=== PATIENT | male | born 1960 | race Hispanic/Latino ===

== ENCOUNTER 2019-09-05 12:26 | Emergency (ER) | payer OTHER ==
[2019-09-05 13:23] LABS: #Basophils 0.1 thou/uL (0.0-0.2); #Eosinphils 0.6 thou/uL (0.0-0.7); #Lymphocytes 2.3 thou/uL (1.20-3.40); #Monocytes 0.5 thou/uL (0.11-0.59); #Neutrophils 2.8 thou/uL (1.40-6.50); %Basophils 1.7 % (0.0-1.0); %Lymphocytes 37.3 % (21.0-51.0); %Monocytes 7.1 % (0.0-10.0); %Neutrophils 44.9 % (42.0-75.0); Hemoglobin 15.9 g/dL (14.0-18.0); Mean Corpuscular HGB CONC 34.3 g/dL (32.0-36.0); Mean Corpuscular Hemoglobin 30.5 pg (27.0-31.0); Mean Corpuscular Volume 89.1 fL (78.0-98.0); Mean Platelet Volume 9.1 fL (7.4-10.4); Platelet Count 203 thou/uL (130-400); RBC Distribution Width 12.8 % (11.5-14.5); White Blood Cell (WBC) Count 6.3 thou/uL (4.8-10.8)
[2019-09-05 14:38] LABS: Albumin 3.4 g/dL (3.5-5.0)
[2019-09-05 14:39] LABS: Chloride 112 mmol/L (98-107); Sodium 138 mmol/L (136-145)
[2019-09-05 14:40] LABS: Calcium 8.8 mg/dL (7.8-10.44); Glucose 99 mg/dL (70-105)
[2019-09-05 14:41] LABS: Globulin 4.4 g/dL (2.4-3.5); Protein, Total 7.8 g/dL (6.0-8.3)
[2019-09-05 14:42] LABS: Anion Gap 11 mmol/L (10-20); Bilirubin, Total 1.3 mg/dL (0.2-1.2); Carbon Dioxide 19 mmol/L (22-29)
[2019-09-05 14:43] LABS: Alkaline Phosphatase 89 U/L (40-110)
[2019-09-05 14:44] LABS: Calc. Creatinine Clearance 0 mL/min (70-130); Estimated GFR-MDRD Greater than 90
[2019-09-05 14:45] LABS: BUN (Urea Nitrogen) 8 mg/dL (8.4-25.7)
[2019-09-05 14:46] LABS: ALT (SGPT) 45 U/L (8-55); AST (SGOT) 35 U/L (5-34); CK (CPK) 694 U/L (30-200)
--- NOTE | 2019-09-06 14:26 | EKG ---
Test Reason : Blood Pressure : / mmHG Vent. Rate : 076 BPM Atrial Rate : 076 BPM P-R Int : 154 ms QRS Dur : 072 ms QT Int : 378 ms P-R-T Axes : 033 035 039 degrees QTc Int : 425 ms Normal sinus rhythm Normal ECG Confirmed by STARLA CAMEJO DO ([id number]), videotape editor RALF MUJICA ([id number] on 09/06/2019 2:25:27 PM Referred By: Confirmed By:STARLA CAMEJO DO
== END 2019-09-05 15:57 | disposition home or self-care (01) ==
LOC: ERS 12:26
DX: R74.8 Abnormal levels of other serum enzymes (principal); E05.90 Thyrotoxicosis, unspecified without thyrotoxic crisis or storm; Z87.891 Personal history of nicotine dependence; Z79.899 Other long term (current) drug therapy
CPT/HCPCS: 36415; 80053; 82550; 85025; 93005; 96360; 96361